=== PATIENT | male | born 2005 | race Caucasian/White ===

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

== ENCOUNTER 2024-04-09 11:50 | Emergency (ER) | payer OTHER ==
[~2024-04-09] VITALS: Ht 190.5 cm; Wt 127.0 kg
[~2024-04-09 11:50] MED LIST changes: +Norco 5-325 Ta1 EACH PO
[2024-04-09] MEDS ORDERED: Cephalexin Monohydrate 500 MG Cap PO ONE (15:00)
[2024-04-09] MEDS ORDERED: IBUP800 PO (15:23)
[2024-04-09] MEDS ORDERED: CODACE30 PO (15:23)
[2024-04-09] MEDS ORDERED: CEPH500 PO (15:23)
[2024-04-09 15:58] VITALS: BP 148/94
== END 2024-04-09 16:01 | disposition home or self-care (01) ==
LOC: ER 11:50
DX: S62.622B Displaced fracture of middle phalanx of right middle finger, initial encounter for open fracture (principal); W23.1XXA Caught, crushed, jammed, or pinched between stationary objects, initial encounter
CPT/HCPCS: 73140; A9270